=== PATIENT | male | born 1960 | race African-American/Black ===

== ENCOUNTER 2017-06-24 22:39 | Emergency (ER) | payer MEDICAID ==
[~2017-06-24] VITALS: Ht 182.9 cm; Wt 94.0 kg
[2017-06-24 22:48] VITALS: BP 169/96
== END 2017-06-24 23:28 | disposition home or self-care (01) ==
LOC: ER 22:39
DX: J22 Unspecified acute lower respiratory infection (principal); Z86.73 Personal history of transient ischemic attack (TIA), and cerebral infarction without residual deficits; F15.10 Other stimulant abuse, uncomplicated; Z59.0 Homelessness; Z56.0 Unemployment, unspecified
CPT/HCPCS: 99281